=== PATIENT | male | born 1950 | race Caucasian/White ===

== ENCOUNTER 2019-01-14 13:41 | Emergency (ER) | payer MEDICARE, SELFPAY ==
[2019-01-14 13:42] VITALS: BP 123/88; PULSE 97; RESP 18; O2SAT 95
[2019-01-14 13:43] VITALS: BP 149/72; PULSE 98; RESP 18; TEMP 37.4; O2SAT 95; BMI 41.1
--- NOTE | 2019-01-14 13:44 | NURSING ---
NO OLD EKGS
--- NOTE | 2019-01-14 13:52 | RAD_ITS ---
STUDY: X-RAY CHEST REASON FOR EXAM: Male, 68 years old. History of lung cancer. Tachypnea and hypoxia. TECHNIQUE: Single AP portable view of the chest. COMPARISON: None. FINDINGS: EKG lead which are seen. There is evidence of a 5.7 cm x 3.3 cm spiculated density in the medial aspect of the left upper lobe. The patient has a history of a prior lung cancer with radiation therapy. There is elevation of the left hilum. Minimal increased markings at the left lung base suggestive of linear atelectasis and/or scarring. Normal size heart. Normal mediastinum and fela. Normal visualized pulmonary arteries. Normal visualized aortic arch and descending thoracic aorta. There are diffuse degenerative changes of the visualized thoracic spine. Normal visualized ribs, clavicles, and shoulders. There is no demonstrated abnormality of the visualized soft tissue structures of the upper abdomen. RAD/Chest 1 View (Portable) IMPRESSION: Spiculated nodular density in the medial left upper lobe. The patient has a history of lung cancer with radiation. Electronically Signed: Abraham Moeller, at 14:35 EDT , Service support ,
--- NOTE | 2019-01-14 13:52 | EKG12_ITS ---
Test Reason : CP Blood Pressure : / mmHG Vent. Rate : 085 BPM Atrial Rate : 085 BPM P-R Int : 178 ms QRS Dur : 098 ms QT Int : 384 ms P-R-T Axes : 038 028 058 degrees QTc Int : 456 ms Normal sinus rhythm Incomplete right bundle branch block Borderline ECG Confirmed by MIYA DURAN, LEOBARDO ([id number]), mapping editor ABBY MCKENNA ([id number]) on 01/16/2019 12:31:19 PM Referred By: HODAN Confirmed By:MANJEET HOLLIDAY MD
--- NOTE | 2019-01-14 13:55 | ED.DCSUM_ITS ---
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 He will awake to verbal and tactile stimuli. He answers questions and then falls asleep. According to he has obstructive sleep apnea. According to he is been outside a lot. 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 He did have prophylactic brain radiation. History is limited because of decreased level consciousness. Prior similar symptoms: No Recent Illness/Hospitalization: No - Past Medical History (1) Small cell carcinoma Status: Acute (2) History of obstructive sleep apnea Status: Acute Past Medical History - Allergies and Home Meds Allergies/Adverse Reactions: Allergies No Known Allergies Allergy (Verified 01/14/19 13:47) Primary Care Physician: Varinder Mann MD [Primary Care Provider] - Prior records reviewed: Yes - History of depression Lives: Spouse/ Significant Other Smoking Status: Former smoker Alcohol: None Drugs: None Review of Systems ROS: Unable to Obtain Physical Exam Vital Signs/Narrative: Vital Signs Temp Pulse Resp BP Pulse Ox 01/14/19 13:43 99.4 F H 98 18 149/72 H 95 01/14/19 13:42 97 18 123/88 H 95 Inital Vital Signs reviewed: Yes General: Well nourished, Well developed Head: Normocephalic, Atraumatic Eyes: Perrl, EOMI. Negative for: Pale conjunctiva, Scleral icterus ENT: No rhinorrhea, TM's clear, Dry mucous membranes Neck: Supple, Nontender, No lymphadenopathy, No JVD Cardiovascular: Regular rate, Regular rhythm, No murmurs, Normal S1, Normal S2 Respiratory: CTA bilaterally, Chest nontender Rectal: Deferred Back: Nontender, Normal Inspection Extremities: Nontender, Edema - 1-2+ and symmetric Skin: Rash - Sunburn. Negative for: Cyanosis, Diaphoresis, Jaundice Neurological: Cranial nerves II-XII grossly intact, Normal Strength. Negative for: Alert, Oriented x3, Normal Gait Psychological: - - Unable to determine Diagnostic/Tx/Re-eval Impressions Chest X-Ray 01/14/19 13:52 IMPRESSION: Spiculated nodular density in the medial left upper lobe. The patient has a history of lung cancer with radiation. Electronically Signed: Abraham Moeller, at 14:35 EDT , Service support , 01/14/19 13:52 Chest 1 View (Portable) [RAD] Stat Laboratory Results 01/14/19 01/14/19 01/14/19 13:45 13:45 13:45 WBC 4.8 RBC 3.95 L Hgb 12.4 L Hct 36.7 L MCV 92.9 MCH 31.4 MCHC 33.8 RDW 13.1 RDW Differential 42.8 Plt Count 158 MPV 9.6 Immature Gran % (Auto) 0.200 Neut % (Auto) 70.4 H Lymph % (Auto) 16.8 L Harney % (Auto) 11.1 H Eos % (Auto) 1.1 Baso % (Auto) 0.4 Absolute Neuts (auto) 3.4 Absolute Lymphs (auto) 0.80 L Total Counted Not Reportable Specimen Type Sample Site pH Bicarbonate Actual POC Total CO2 Base Excess O2 Saturation ABG pCO2 ABG pO2 Bryant Test O2 Delivery Device Liter Flow Blood Gas Notified Whom Blood Gas Notified Time Sodium 135 L Potassium 4.0 Chloride 103 Carbon Dioxide 26.0 Anion Gap 6 BUN 19 H Creatinine 1.32 H Estim Creat Clear Calc 50.08 Est GFR (MDRD) Af Amer 69 Est GFR (MDRD) Non-Af 57 L BUN/Creatinine Ratio 14.4 Glucose 130 H Lactic Acid 1.3 Calcium 9.3 Troponin I < 0.015 01/14/19 14:20 WBC RBC Hgb Hct MCV MCH MCHC RDW RDW Differential Plt Count MPV Immature Gran % (Auto) Neut % (Auto) Lymph % (Auto) Harney % (Auto) Eos % (Auto) Baso % (Auto) Absolute Neuts (auto) Absolute Lymphs (auto) Total Counted Specimen Type ART Sample Site L Radial pH 7.40 Bicarbonate Actual 23.7 POC Total CO2 25 Base Excess -1 O2 Saturation 96 ABG pCO2 37.9 ABG pO2 79 Bryant Test POS O2 Delivery Device Nasal Can Liter Flow 2.0 Blood Gas Notified Whom ED MD Blood Gas Notified Time 1417 Sodium Potassium Chloride Carbon Dioxide Anion Gap BUN Creatinine Estim Creat Clear Calc Est GFR (MDRD) Af Amer Est GFR (MDRD) Non-Af BUN/Creatinine Ratio Glucose Lactic Acid Calcium Troponin I - Rhythm Strip Rhythm Strip: Sinus Rhythm Rate: 86 Ectopy: PAC(s) - Occasional - EKG Initial EKG Interpretation: Sinus Rhythm - Regular rate is 85. There is a RR prime in V1 and V2. QS duration is prolonged at 98 ms. CO interval is 170 ms. QT interval is 384 ms. - Medical Decision Making Resents after syncopal episode. With history of cancer, tachypnea and hypoxia need to consider pulmonary embolus. Patient did endorse cramps in his extremities. With history of being outside prolonged period with decreased p.o. intake this may represent heat exhaustion. IV fluid was administered. Because he is elderly EKG was obtained to look for evidence of acute cardiac ischemia and right heart strain that would suggest significant pulmonary embolus. Baseline blood work was obtained including CBC, BMP and troponin. ABG is unremarkable with no acid-base disturbance or CO2 retention. Creatinine is elevated 1.32. states is not normal. He has received 1 L of normal saline and has no urge to urinate. Will administer second liter of normal saline. He was reassessed at 1440 Patient was reassessed at 1550. He is sitting up talking and states he has slight urge to urinate. Once the second liter of normal saline has infused he will be discharged home. ED Disposition - Plan for ED Patient: Disposition: Home or Assisted Living Diagnosis: Heat exhaustion due to water depletion Instructions: Heat Exhaustion Referrals: Mann,Son, [Primary Care Provider] - Additional Instructions: Recommend you stay out of the sun for the next 24 hours.
[2019-01-14] MEDS: 0.9% Normal Saline 1,000 ML 1000 ML IV ×2 (14:02→15:36)
[2019-01-14 14:05] LABS: Absolute Neutrophil Count 3.4 X10^3/uL (2.0-7.7); Basophil# 0.02 X10^3/uL; Basophil% 0.4 % (0-1); Eosinophil# 0.05 X10^3/uL; Eosinophils% 1.1 % (0-5); Hematocrit 36.7 % (40-54); Hemoglobin 12.4 g/dl (13.0-16.5); Lymphocyte % 16.8 % (19-41); Mean Corp Hgb Conc 33.8 g/gl (32-36); Mean Corpuscular Hgb 31.4 pg (27.0-32.0); Mean Corpuscular Volume 92.9 fL (80-94); Mean Platelet Vol. 9.6 fl (6.2-12.0); Monocyte# 0.53 X10^3/uL; Monocyte% 11.1 % (0-10); Neutrophil # 3.35 X10^3/uL (2.7-7.7); Neutrophil % 70.4 % (47-70); Platelet Count 158 K/mm3 (150-450); RBC Distribution Width CV 13.1 % (11.6-14.6); RBC Distribution Width SD 42.8 fl (35.1-43.9); Red Blood Count 3.95 M/mm3 (4.6-6.2); White Blood Count 4.8 K/mm3 (4.4-11.0)
[2019-01-14 14:06] LABS: POSITIVE COUNT NO; POSITIVE DIFFERENTIAL NO; POSITIVE MORPHOLOGY NO
[2019-01-14 14:15] LABS: Anion Gap 6 (5-15); BUN 19 mg/dL (7-18); BUN/Creat Ratio 14.4 RATIO (10-20); Calcium,Total 9.3 mg/dL (8.5-10.1); Chloride 103 mmol/L (98-107); Creatinine, Serum 1.32 mg/dL (0.70-1.30); EST Glomerular Filtration Rate 57 mL/min (>60); Est Glom Filt Rate - Afr Amer 69 mL/min (>60); Estimated Creatinine Clearance 50.08 ml/min; Glucose 130 mg/dL (74-106); Sodium Level 135 mmol/L (136-145)
[2019-01-14 14:23] LABS: Lactic Acid 1.3 mmol/L (0.4-2.0)
[2019-01-14 14:25] LABS: Allen Test POS; Base Excess -1 mmol/L (-2 to +2); Bicarbonate 23.7 mmol/L (22-26); Blood Gas Specimen Type ART; O2 Delivery Device Nasal Can; PO2 79 mmHG (75-100); SITE L Radial; SO2 96 % (95-99); Time Given 1417; Total Carbon Dioxide 25 mmol/L; pCO2 37.9 mmHg (35-45)
[2019-01-14 14:42] VITALS: BP 125/63; PULSE 67; RESP 16; O2SAT 97
[2019-01-14 15:00] VITALS: BP 125/63; PULSE 69; RESP 16; O2SAT 97
[2019-01-14 16:00] VITALS: BP 129/64; PULSE 68; RESP 17; O2SAT 100
--- NOTE | 2019-01-14 16:00 | CM.ED ---
Social Work Assessment Referral Date: 01/14/19 Date of Assessment: 01/14/19 Informant: SELF REFERRAL Reason for Consult: PATIENT SHOWING SELF-PAY Information obtained from: PATIENT AND PATIENT'S SONPAPO Living Arrangements: PATIENT LIVES HOME WITH AND DAUGHTER IN A 1 STORY HOME WITH RAMP. HOME IS HANDICAP ACCESSIBLE DAUGHTER IS WHEELCHAIR BOUND. DME: CANE, WALKER Employment/Financial: RETIRED Supports: PATIENT HAS GOOD SUPPORT FROM FAMILY. Social/Family Stressors: PATIENT REPORTS HAS BEEN HAVING ISSUES WITH AMBULATION. PATIENT REPORTS LEGS GAVE OUT TODAY AND ENDED UP IN EMERGENCY ROOM. Mental Health History: PATIENT DENIES HX OF MENTAL HEALTH Substance Abuse History: PATIENT DENIES HX OF SUBSTANCE ABUSE Interventions: SOCIAL SERVICE ASSESSMENT Assessment: PATIENT IS A 68 Y/O MALE WHO LIVES HOME WITH IN A SINGLE STORY HOME WITH RAMP TO ENTER. PATIENT REPORTS HAS BEEN HAVING ISSUES WITH HIS LEGS/AMBULATION. PATIENT STATES WAS TRYING TO GET INTO HIS TRUCK EARLIER TODAY AND LEGS GAVE OUT. PATIENT STATES I ENDED UP ON THE GROUND AND IT WAS HOT. EMOTIONAL SUPPORT PROVIDED. DISCUSSED SELF PAY STATUS. SON STATES HAS BEEN LOOKING FOR PATIENT'S INSURANCE CARDS. PATIENT REPORTS TO HAVE MEDICARE AND AARP. THIS WORKER INFORMED REGISTRATION WHO WILL FOLLOW UP. PLAN: TBD. PATIENT REPORTS HAS MEDICARE AND AARP-REGISTRATION FOLLOWING UP.
[2019-01-14 16:11] LABS: Bacteria 0 SEEN /hpf (None Seen); Red Blood Cells-Urine 0 SEEN /hpf (0-5); Squamous Epithelial Cells - UA 0 SEEN /hpf (0-5)
[2019-01-14 16:18] VITALS: BP 136/76; PULSE 69; RESP 16; O2SAT 99
[2019-01-14 16:20] LABS: Color, Urine Yellow (Yellow); Glucose, Dipstick Normal (Normal); Ketone-Dipstick Negative (Negative); Leukocyte Esterase-Dipstick 25 /ul (Negative); Nitrite-Dipstick Negative (Negative); Occult Blood-Urine Negative /ul (Negative); Protein-Dipstick Negative (Negative); Specific Gravity, Urine 1.015 (1.002-1.030); Urine Bilirubin Dipstick Negative (Negative); Urine Clarity Clear (Clear); Urine Urobilinogen Normal (Normal)
[2019-01-14 16:26] LABS: White Blood Cells 0-5 SEEN /hpf (0-5)
[2019-01-14 16:27] LABS: Mucous, Urine RARE /hpf (<or=2+)
== END 2019-01-14 16:27 | disposition home or self-care (01) ==
PROVIDERS: Emergency Provider Emergency Medicine; Family Provider Family Medicine; PCP Family Medicine
DX: T67.3XXA Heat exhaustion, anhydrotic, initial encounter (principal); I49.1 Atrial premature depolarization; R91.1 Solitary pulmonary nodule; X30.XXXA Exposure to excessive natural heat, initial encounter; Y93.9 Activity, unspecified; Y92.9 Unspecified place or not applicable; G47.33 Obstructive sleep apnea (adult) (pediatric); F32.9 Major depressive disorder, single episode, unspecified; Z85.118 Personal history of other malignant neoplasm of bronchus and lung; Z92.3 Personal history of irradiation; Z92.21 Personal history of antineoplastic chemotherapy; Z79.899 Other long term (current) drug therapy; Z87.891 Personal history of nicotine dependence
CPT/HCPCS: 36600; 71045; 80048; 81001; 82803; 83605; 84484; 85025; 93005; 96360; 96361; 99285; J7030; A4216